=== PATIENT | female | born 1945 | race Caucasian/White ===

== ENCOUNTER 2018-10-23 01:33 | Inpatient (IN) | payer BC ==
[2018-10-23] MEDS ORDERED: morphine SULFATE/PF (2 MG/2 ML) SYG IV (04:30)
[2018-10-23] MEDS: ONDANSETRON 4 MG INJ IV (05:32)
[2018-10-23] MEDS: FUROSEMIDE 40 MG TAB PO ×2 (05:32→17:07)
[2018-10-23] MEDS: ACETAMINOPHEN 325 MG TAB PO (05:42)
[2018-10-23] MEDS: POTASSIUM CHLORIDE (SR) 20 MEQ TAB PO ×2 (08:17→20:07)
[2018-10-23] MEDS: ASPIRIN (EC) 81 MG TAB PO (08:17)
[2018-10-23] MEDS: AMLODIPINE 5 MG TAB PO ×2 (08:18→20:08)
[2018-10-23] MEDS: ARTIFICIAL TEARS 15 ML OPH BOTH EYES ×4 (08:20→21:00)
[2018-10-23] MEDS: HYDROXYCHLOROQUINE 200 MG TAB PO ×2 (08:20→20:08)
[2018-10-23] MEDS ORDERED: HYDROCODONE/APAP (5/325) TAB PO (11:30)
[2018-10-23] MEDS: SUMATRIPTAN 25 MG TAB PO ×3 (13:02→20:08)
[2018-10-23] MEDS: ACYCLOVIR 800 MG TAB PO ×3 (14:59→20:07)
[2018-10-23] MEDS: SOD CHLORIDE 0.9% 1,000 ML IV (14:59)
[2018-10-24 05:06] LABS: ADD MAN DIFF? NO
[2018-10-24 05:09] LABS: BASOPHIL # 0.1 10^3/ul (0.0-0.1); BASOPHILS % 0.6 % (0.0-2.0); HEMATOCRIT 41.8 % (37.0-47.0); HEMOGLOBIN 13.9 g/dl (12.0-16.0); LYMPHOCYTES # 1.1 10^3/ul (0.8-2.9); LYMPHOCYTES % 13.5 % (15.0-51.0); MEAN CORPUSCULAR HEMOGLOBIN 26.6 pg (29.0-33.0); MEAN CORPUSCULAR HGB CONC 33.3 g/dl (32.0-37.0); MEAN CORPUSCULAR VOLUME 79.9 fl (82.0-101.0); MEAN PLATELET VOLUME 10.6 fl (7.4-10.4); MONOCYTE # 0.6 10^3/ul (0.3-0.9); MONOCYTES % 7.4 % (0.0-11.0); NEUTROPHIL # 6.6 10^3/ul (1.6-7.5); NEUTROPHILS % 78.3 % (39.0-77.0); PLATELET COUNT 322 10^3/UL (140-415); RED BLOOD COUNT 5.23 10^6/ul (4.20-5.40); RED CELL DISTRIBUTION WIDTH 12.3 % (11.5-14.5)
[2018-10-24 05:09] LABS: WHITE BLOOD COUNT 8.4 10^3/ul (4.8-10.8)
[2018-10-24] MEDS: FUROSEMIDE 40 MG TAB PO (05:35)
[2018-10-24] MEDS: SOD CHLORIDE 0.9% 1,000 ML IV (05:38)
[2018-10-24 05:39] LABS: ALANINE AMINOTRANSFERASE 16 IU/L (13-69); ALBUMIN 4.3 g/dl (3.3-4.9); ALBUMIN/GLOBULIN RATIO 1.59; ALKALINE PHOSPHATASE 113 IU/L (42-121); ANION GAP 7 (5-13); ASPARTATE AMINO TRANSFERASE 18 IU/L (15-46); BILIRUBIN,INDIRECT 0.5 mg/dl (0-1.1); BILIRUBIN,TOTAL 0.5 mg/dl (0.2-1.3); BLOOD UREA NITROGEN 11 mg/dl (7-20); CALCIUM 9.1 mg/dl (8.4-10.2); CARBON DIOXIDE 29 mmol/L (21-31); CHLORIDE 102 mmol/L (97-110); CREATININE 0.54 mg/dl (0.44-1.00); GLUCOSE 114 mg/dl (70-220); SODIUM 138 mmol/L (135-144)
[2018-10-24 05:45] LABS: MAGNESIUM 2.3 mg/dl (1.7-2.5)
[2018-10-24 05:45] LABS: INR 0.99; PROTIME 13.2 Sec (11.9-14.9)
[2018-10-24 05:46] LABS: PARTIAL THROMBOPLASTIN TIME 25.4 Sec (23.0-35.0)
[2018-10-24 06:01] LABS: POTASSIUM 2.8 mmol/L (3.5-5.1)
[2018-10-24] MEDS: ARTIFICIAL TEARS 15 ML OPH BOTH EYES ×2 (09:00→12:31)
[2018-10-24] MEDS: POTASSIUM CHLORIDE (SR) 20 MEQ TAB PO ×2 (09:42→12:32)
[2018-10-24] MEDS: ACYCLOVIR 800 MG TAB PO ×2 (09:43→12:31)
[2018-10-24] MEDS: SUMATRIPTAN 25 MG TAB PO ×2 (09:43→14:20)
[2018-10-24] MEDS: AMLODIPINE 5 MG TAB PO (09:43)
[2018-10-24] MEDS: ASPIRIN (EC) 81 MG TAB PO (09:43)
[2018-10-24] MEDS: HYDROXYCHLOROQUINE 200 MG TAB PO (09:43)
[2018-10-24] MEDS: IBUPROFEN 400 MG TAB PO (12:31)
[2018-10-24] MEDS ORDERED: morphine LIQ (10 MG/5 ML) CUP PO (16:30)
[2018-10-24] MEDS ORDERED: FUROSEMIDE 20 MG TAB PO (18:00)
== END 2018-10-24 16:16 | disposition home or self-care (01) | DRG 103 ==
LOC: MS1 01:33
DX: G43.109 Migraine with aura, not intractable, without status migrainosus (principal); B02.39 Other herpes zoster eye disease; M54.9 Dorsalgia, unspecified; E86.0 Dehydration; M34.1 CR(E)ST syndrome; I10 Essential (primary) hypertension
CPT/HCPCS: 80053; 83735; 85025; 85610; 85730